=== PATIENT | female | born 1990 | race Caucasian/White ===

== ENCOUNTER 2021-03-10 14:47 | Emergency (ER) | payer OTHER ==
[~2021-03-10] VITALS: Ht 170.2 cm; Wt 81.6 kg
[~2021-03-10 14:47] MED LIST: ESCI10TA10 PO; NEBI5TAB2 PO
[2021-03-10 15:09] VITALS: BP 143/103
--- NOTE | 2021-03-10 15:14 | NUR ---
ARRIVAL PATIENT ARRIVED TO [facility]BULATORY, C/O HEADACHE AND DIZZINESS FOR THE PAST 3MONTHS, HAS BEEN TAKE FLEXERIL,TYLENOL,AND MECLIZINE WITH NO RELIEF, DOES HAVE A FOLLOW UP APPT WITH HER PCP TOMORROW IN [facility] BUT DID FEEL WELL ENOUGH TO GO HOME, CAME TO THE ED FOR EVAL, VITAL SIGNS OBTAINED AND DOCTOR CECILE IN THE ROOM AT THIS TIME.
[2021-03-10] MEDS ORDERED: PHENERGAN ONE (15:37)
[2021-03-10] MEDS ORDERED: PHENERGAN IM STA (15:37)
[2021-03-10] MEDS ORDERED: STADOL IM STA (15:37)
--- NOTE | 2021-03-10 15:38 | PCM.EKG ---
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
[2021-03-10] MEDS ORDERED: SUBLIMAZE IM STA (15:40)
[2021-03-10] MEDS ORDERED: SUBLIMAZE ONE (15:41)
[2021-03-10 15:55] LABS: BILIRUBIN,URINE NEGATIVE (NEGATIVE); UROBILINOGEN,URINE 0.2 E.U./dL (0.2)
--- NOTE | 2021-03-10 16:09 | ER.PDOC ---
General Chief Complaint: Headache Stated Complaint: HEADACHE/DIZZY Time seen by MD: 14:47 Source: patient, family Exam Limitations: no limitations History of Present Illness Initial Comments This 30-year-old female comes in with a complaint of vertigo this. Recurring problem for the past 8 weeks or more. This is an episodic pain that comes and goes and when present she is nauseous from it and has some blurred vision with it she has not vomited yet but certainly gets a lot of nausea and has to hold perfectly still to let it calm down. She states that she has a little bit of out of balance since then when she is even tried to hold perfectly still but if she moves at all it makes it much worse when it is present. Yesterday's that s he had an absolutely perfectly normal day and then today had the vertigo again. Again it may be 3 or 4 5 days in between about it may be a week or so between bouts and her bowels can last for 1 day or maybe 3 or 4 days. There does not seem to be any rhyme or reason to any of them. Patient has a history of migraine headaches and her head ache is on the left side which she usually has her migraines on but instead to be on a frontal headache is more of a posterior headache. Patient when she came in was mildly hypertensive and tachycardic. However, I suspect that there is just secondary to anxiety and pain process. And after patient is sent here for a while her blood pressure and pulse is both come down perfectly normal. She also complained of some vague dysuria-like symptoms but no suzanne burning frequency urgency and just wanted a urine checked before they went home to [place]. Occurred: yesterday Severity: moderate Associated Symptoms: vestibular, nausea/vomiting, sense of movement, spinning, headache Decreased Ability to Stand: off balance Usually: walks w/o assistance Worsened By: changing position, movement of head Prior symptoms/Treatment: Similar symptoms previous Allergies: Coded Allergies: Sulfa (Sulfonamide Antibiotics) (Verified Allergy, Unknown, 05/15/15) Home Meds Reported Medications Nebivolol Hcl (BYSTOLIC) 5 Mg Tablet, 1 TAB PO DAILY, #90 TAB 1 Refill 05/15/15 Escitalopram Oxalate (LEXAPRO) 10 Mg Tablet, 1 TAB PO DAILY, #90 TAB 3 Refills 05/15/15 Past Medical History Medical History: other (Chest is history of vertigo) Surgical History: appendectomy, cholecystectomy, Social History Smoking: non-smoker Alcohol Use: rarely Drug Use: none Review of Systems Genitourinary: dysuria Psychiatric/Neurological: other (This history of vertigo) All Other Systems: Reviewed and Negative Physical Exam General Appearance: alert, no distress EENT: nml eye inspection, PERRL, pharynx nml, TM's nml, nystagmus Neck: supple Respiratory: no resp distress, breath sounds nml CVS: reg rate & rhythm, heart sounds.nml Abdomen: non-tender, no organomegaly, no distention Skin: color nml, no rash, warm/dry Extremities: non-tender, nml ROM, no pedal edema Neuro/Psych: nml orientation, nml speech/cognition, nml mood/affect Cranial Nerves: nml as tested, no evidence of acute CVA Cerebellar: abnml Romberg test, abnml [id number], other (Patient was unable to do heel toe heel toe type walk. Romberg certainly was unstable but did not fall.) Sensorimotor: nml motor, nml sensation Results/Orders Results/Orders Orders - YAYO HUBER MD Ekg-Routine (03/10/21 15:36) Butorphanol Tartrate (Stadol) (03/10/21 15:37) Promethazine Hcl (Phenergan) (03/10/21 15:37) Promethazine Hcl (Phenergan) (03/10/21 15:37) Urinalysis (03/10/21 15:38) Fentanyl Citrate/Pf (Sublimaze) (03/10/21 15:41) Fentanyl Citrate/Pf (Sublimaze) (03/10/21 15:40) Vital Signs Date Time Temp Pulse Resp B/P (MAP) Pulse Ox O2 Delivery O2 Flow Rate FiO2 03/10/21 15:09 99.7 146 18 97 03/10/21 15:09 99.7 146 18 143/103 (116) 97 Room Air 03/10/21 15:09 99.7 146 18 Administered Medications Medications (Trade) Dose Ordered Sig/Ailin Route PRN Reason Start Time Stop Time Status Last Admin Dose Admin Fentanyl Citrate (Sublimaze) 50 mcg STAT STAT IM 03/10/21 15:40 03/10/21 15:42 DC 03/10/21 15:49 50 MCG Promethazine HCl (Phenergan) 25 mg OT STAT IM 03/10/21 15:37 03/10/21 15:39 DC 03/10/21 15:49 25 MG Laboratory Tests Test 03/10/21 15:54 Urine Collection Type RANDOM Urine Color YELLOW Urine Appearance CLEAR Urine Bilirubin NEGATIVE (NEGATIVE) Urine Ketones NEGATIVE (NEGATIVE) Urine Specific [place] 1.010 (1.005-1.030) Urine pH 5.0 (4.5-8.0) Urine Protein NEGATIVE (NEGATIVE) Urine Urobilinogen 0.2 E.U./dL (0.2) Urine Nitrate NEGATIVE (NEGATIVE) Urine Leukocyte Esterase NEGATIVE (NEGATIVE) Urine Glucose (Auto)(UA) NEGATIVE (NEGATIVE) Urine Blood TRACE-INTACT (NEGATIVE) H Progress Progress Urinalysis was completely negative. Patient has an appointment tomorrow with her PCP back in [place] and just wanted something for her headache and they will go home to [place] and have further evaluation. Her PCP is going to get an MRI on her and I fully concur with that being one of the studies done for her recurring vertigo. I did explain various things that can cause vertigo and that [facility] neurolog[facility] centers are ER DEPART Departure Time of Disposition: 16:08 Disposition: 01 HOME / SELF CARE / HOMELESS Impression: Primary Impression: Vertigo Additional Impression: Migraine Condition: Stable Referrals: UNDEFINED,PHYSICIAN (PCP) PRIMARY CARE PROVIDER Comments Patient was given 50 mg of fentanyl and 25 mg of Phenergan here. She is discharged to home with instructions to continue with the Antivert Duration or Time Spent with Pa: 20m Problem Qualifiers YAYO HUBER MD Mar 10, 2021 16:09
[2021-03-10 16:14] VITALS: BP 150/103
== END 2021-03-10 16:15 | disposition home or self-care (01) ==
LOC: ER 14:47
DX: G43.909 Migraine, unspecified, not intractable, without status migrainosus (principal); I10 Essential (primary) hypertension; Z79.899 Other long term (current) drug therapy; Z88.2 Allergy status to sulfonamides; Z90.49 Acquired absence of other specified parts of digestive tract
CPT/HCPCS: 81001; 87086; 93005; 96372; 99284; J2550; J3010